=== PATIENT | female | born 1960 | race Caucasian/White ===

== ENCOUNTER 2018-03-12 18:27 | Inpatient (IN) | payer MEDICAID ==
[~2018-03-12] VITALS: Ht 157.5 cm; Wt 61.7 kg
[2018-03-12 18:32] VITALS: Ht 157.5 cm; Wt 61.7 kg
[2018-03-12] MEDS ORDERED: NEPHRO-VITE VITA1 EA (18:58)
[2018-03-12 19:31] LABS: BASOPHIL % 0.7 % (0-2); PLATELET COUNT 416 x10^3mcL (130-400); RED CELL DISTRIBUTION WIDTH 15.4 % (11.5-14.5)
[2018-03-12 19:36] LABS: UA SPECIFIC GRAVITY <=1.005 (1.005-1.035); microscopic required? YES; urine erythrocyte 2+ (NEGATIVE)
[2018-03-12 19:53] LABS: CK-MB < 0.5 ng/mL (0-3.6); CREATINE KINASE 29 U/L (26-192)
[2018-03-12 20:09] LABS: BILIRUBIN TOTAL 0.64 mg/dL (0.20-1.00); CALCIUM 8.8 mg/dL (8.5-10.1); CARBON DIOXIDE 32.4 mmol/L (21-32); POTASSIUM SERUM 3.7 mmol/L (3.5-5.1); TOTAL PROTEIN, SERUM 7.2 g/dL (6.4-8.2)
[2018-03-12 20:17] LABS: ALBUMIN 2.1 g/dL (3.4-5.0)
[2018-03-12 20:18] LABS: CREATININE SERUM 4.7 mg/dL (0.6-1.0)
[2018-03-12 21:05] LABS: MAGNESIUM 2.1 mg/dL (1.8-2.4); PHOSPHOROUS 3.2 mg/dL (2.5-4.9)
[2018-03-12 21:16] LABS: CHOLESTEROL/HDL RATIO 3.8
[2018-03-12 21:38] LABS: FREE T4 1.51 ng/dL (0.76-1.46); FREE THYROXINE INDEX 3.2 ug/dL (1.4-4.5); T4(THYROXINE) 8.3 ug/dL (4.7-13.3)
[2018-03-12 21:50] LABS: AMPHETAMINE QUAL UR NONE DETECTED (NEG <=1000)
[2018-03-12 22:05] LABS: T3 TOTAL 0.6 ng/mL
[2018-03-12 22:17] VITALS: BP 101/52
[2018-03-13 05:22] VITALS: BP 116/56
[2018-03-13 08:32] LABS: BASOPHIL % 0.3 % (0-2); PLATELET COUNT 390 x10^3mcL (130-400)
[2018-03-13 08:37] LABS: RED CELL DISTRIBUTION WIDTH 15.7 % (11.5-14.5)
[2018-03-13 09:21] LABS: CALCIUM 8.7 mg/dL (8.5-10.1); CARBON DIOXIDE 29.8 mmol/L (21-32); POTASSIUM SERUM 4.5 mmol/L (3.5-5.1)
[2018-03-13 09:38] LABS: CREATININE SERUM 5.8 mg/dL (0.6-1.0)
[2018-03-13 10:04] VITALS: BP 103/53
[2018-03-13 13:52] VITALS: BP 121/58
== END 2018-03-13 16:00 | disposition left against medical advice (07) | DRG 463 ==
LOC: ED 18:27 → DU 20:40
PROVIDERS: Emergency Medicine; Family Medicine
DX: N10 Acute pyelonephritis (principal); N17.0 Acute kidney failure with tubular necrosis; E43 Unspecified severe protein-calorie malnutrition; N39.0 Urinary tract infection, site not specified; R31.9 Hematuria, unspecified; E87.1 Hypo-osmolality and hyponatremia; Z53.29 Procedure and treatment not carried out because of patient's decision for other reasons; N18.9 Chronic kidney disease, unspecified; D47.3 Essential (hemorrhagic) thrombocythemia; Z68.23 Body mass index [BMI] 23.0-23.9, adult
CPT/HCPCS: 83880; 84439; J0696; J0885-EC; J1885; J7040; Q0092; Q0162